=== PATIENT | female | born 1990 | race Two or more races ===

== ENCOUNTER 2016-08-24 16:49 | Inpatient (IN) | payer BC, OTHER ==
[~2016-08-24] VITALS: Ht 157.5 cm; Wt 76.8 kg
--- NOTE | ~2016-08-24 | OR ---
PATIENT'S NAME: JOHN PAUL MALAVE [facility] AGE: 25 Y [address] ROOM: [place] [id number] LOCATION: GOBS ADMIT DATE: 10/16/2016 OR/Procedure Report DISCHARGE DATE: FAMILY PHYSICIAN: PHYSICIAN, NO ATTENDING PHYSICIAN: Ashley Martin SURGEON: Ashley Martin MD ISSUE CLERK: DATE OF PROCEDURE: 10/16/2016 DIAGNOSES: 1. Term intrauterine . 2. Artificial rupture of membranes. 3. Epidural anesthesia. 4. Normal spontaneous vaginal delivery, direct occiput posterior. 5. Nuchal cord x1. DELIVERY NOTE: The patient is a 1, para 0, who presents at 40 weeks and 4 days' gestation. She presented in labor. Her cervix progressed to 3-4 cm at which point artificial rupture of membranes with clear fluid was performed. She progressed to complete dilation without difficulty. She had pushed effectively over the next hour to deliver a viable 7 pounds 5 ounce male . Delivery was direct occiput posterior. There was nuchal cord x1. It was doubly clamped and cut. Prior to delivery, episiotomy was performed. The patient also had epidural anesthesia. Nuchal cord x1 was doubly clamped and cut and then the baby was delivered in full. Was taken over to the baby warmer and stimulation was applied. Baby did respond appropriately. Placenta was then delivered intact with 3-vessel cord. Midline episiotomy was repaired with 3-0 chromic interlocking sutures to the perineum, continuous sutures down the perineum, and subcuticular sutures back. Hemostasis was obtained. Estimated blood loss was 350 mL. Cord was 3 vessel and there were no vaginal sidewall lacerations. Sponge count and needle count were correct. ASHLEY MARTIN MD CSM/modl /[id number] d: 10/17/16 0001 t: 10/22/16 0150, OPERATIVE SUMMARY
[2016-08-24] MEDS ORDERED: PRENATAL 1+1)(P1 TAB PO (17:21)
[2016-08-24] MEDS ORDERED: TUMS200 MG PO (17:22)
[2016-10-16] MEDS ORDERED: EQ STOOL SOFTE1 EACH PO (07:09)
[2016-10-16] MEDS ORDERED: TUMS200 MG PO (07:10)
[2016-10-16] MEDS ORDERED: PROTONIX40 MG PO (07:10)
[2016-10-16 07:31] LABS: BASOPHIL # 0.1 K/uL (0.0-0.2); BASOPHIL % 0.5 %; EOSINOPHIL # 0.1 K/uL (0.0-0.5); EOSINOPHIL % 0.3 %; HEMATOCRIT 38.7 % (33.0-46.0); HEMOGLOBIN 13.1 g/dL (11.0-15.0); IMMATURE GRANULOCYTE # 0.1 K/uL (0.0-0.3); IMMATURE GRANULOCYTE % 0.8 %; LYMPHOCYTE # 2.1 K/uL (0.8-4.0); MCH 32.6 pg (27.0-34.0); MCHC 33.9 gm/dL (32.0-36.5); MCV 96.3 fl (83.0-98.0); MONOCYTE # 0.8 K/uL (0.0-1.0); MONOCYTE % 5.2 %; MPV 13.2 fl (9.4-12.4); NEUTROPHIL # (ANC) 11.8 K/uL (1.8-7.8); NEUTROPHIL % 79.2 %; NRBC % 0 /100WBC (0-0.00); PLATELET COUNT 93 K/uL (150-450); RBC 4.02 M/uL (3.50-5.00); RDW-CV 13.5 % (11.9-14.6); WBC 14.9 K/uL (4.0-11.0)
--- NOTE | 2016-10-16 18:10 | NUR ---
Last VS: T:98.8 P:69 R: 18 BP: 125/79 Pain rating: . Last pain med: None given Medicated at: Effective: Breasts: SOFT, Nipples: FLAT Fundus:, FIRM -2, Lochia: SM-MOD, Epis/Perineum: EDEMA, APPROXIMATED , , Voiding well: OH DC'D AT 1545, NO VOID Significant event: .
--- NOTE | 2016-10-17 05:12 | NUR ---
VSS. VOIDING WITHOUT DIFFICULTY. FUNDUS FIRM, -1, SMALL FLOW. USING TEAPADS. LAST HAD PERC/MOT AT 2237. USING SOFT SHELLS. PLATELETS 89.
[2016-10-17 05:28] LABS: BASOPHIL # 0.1 K/uL (0.0-0.2); BASOPHIL % 0.4 %; EOSINOPHIL # 0.1 K/uL (0.0-0.5); EOSINOPHIL % 0.5 %; HEMOGLOBIN 10.3 g/dL (11.0-15.0); IMMATURE GRANULOCYTE # 0.1 K/uL (0.0-0.3); IMMATURE GRANULOCYTE % 0.6 %; LYMPHOCYTE # 2.6 K/uL (0.8-4.0); LYMPHOCYTE % 18.3 %; MCH 32.4 pg (27.0-34.0); MCHC 33.4 gm/dL (32.0-36.5); MCV 96.9 fl (83.0-98.0); MONOCYTE # 0.8 K/uL (0.0-1.0); MONOCYTE % 5.5 %; NEUTROPHIL # (ANC) 10.7 K/uL (1.8-7.8); NEUTROPHIL % 74.7 %; NRBC % 0 /100WBC (0-0.00); PLATELET COUNT 77 K/uL (150-450); RBC 3.18 M/uL (3.50-5.00); RDW-CV 13.7 % (11.9-14.6); WBC 14.3 K/uL (4.0-11.0)
[2016-10-17 05:32] LABS: HEMATOCRIT 30.8 % (33.0-46.0)
--- NOTE | 2016-10-17 12:51 | NUR ---
Student charting read.
--- NOTE | 2016-10-17 13:20 | NUR ---
Reviewed patient's chart. Patient had good care and no concerns noted in her chart. Will follow up with patient and offer supports.
--- NOTE | 2016-10-17 18:27 | NUR ---
Significant Event: Follow up: baby's vital signs are good. patient uses T-Pads.. firm and 1 finger down. I took her saline lock out at 1550. took percocet/Motrin at 0725.
--- NOTE | 2016-10-18 03:27 | NUR ---
vss, fundus firm, 1 finger below umbilicus, small flow. 2 percocet given at 2003. pt needs reinforcement at times with feedings and diaper changes. home today.
[2016-10-18 10:00] LABS: BASOPHIL % 0.2 %; EOSINOPHIL # 0.1 K/uL (0.0-0.5); EOSINOPHIL % 0.9 %; HEMATOCRIT 34.9 % (33.0-46.0); HEMOGLOBIN 11.6 g/dL (11.0-15.0); IMMATURE GRANULOCYTE % 0.3 %; LYMPHOCYTE # 1.6 K/uL (0.8-4.0); MCH 32.6 pg (27.0-34.0); MCHC 33.2 gm/dL (32.0-36.5); MONOCYTE # 0.6 K/uL (0.0-1.0); MONOCYTE % 4.3 %; NEUTROPHIL % 82.3 %; NRBC % 0 /100WBC (0-0.00); PLATELET COUNT 85 K/uL (150-450); RBC 3.56 M/uL (3.50-5.00); RDW-CV 13.7 % (11.9-14.6); WBC 13.3 K/uL (4.0-11.0)
--- NOTE | 2016-10-18 12:11 | NUR ---
Student charting read.
[2016-10-18] MEDS ORDERED: LANSINOH7 GM TOP (14:00)
[2016-10-18] MEDS ORDERED: DERMOPLAST SPRA56 GM TOP (14:00)
[2016-10-18] MEDS ORDERED: MOTRIN800 MG PO (14:00)
[2016-10-18] MEDS ORDERED: PERCOCET 5-3251 EACH PO (14:01)
== END 2016-10-18 16:10 | disposition disaster alternative care site (69) | DRG 775 ==
LOC: GOBM 16:49 → EDSTATUS 10-12 06:24 → GOBM 10-12 12:34 → GOBS 10-16 06:27
PROVIDERS: Family Medicine; ADMIT Family Medicine
PROC: 10907ZC Drainage of Amniotic Fluid, Therapeutic from Products of Conception, Via Natural or Artificial Opening (ICD-10-PCS; principal; 2016-10-16)
PROC: 0W8NXZZ Division of Female Perineum, External Approach (ICD-10-PCS; principal; 2016-10-16)
PROC: 10E0XZZ Delivery of Products of Conception, External Approach (ICD-10-PCS; principal; 2016-10-16)
DX: O48.0 Post-term pregnancy (principal); O69.81X0 Labor and delivery complicated by cord around neck, without compression, not applicable or unspecified; Z3A.40 40 weeks gestation of pregnancy; Z37.0 Single live birth
CPT/HCPCS: J2590; J3010; J7120